=== PATIENT | male | born 1965 | race Caucasian/White ===

== ENCOUNTER 2025-10-24 08:44 | Outpatient (CLI) | payer BC, SELFPAY | END 2025-10-24 08:45 | disposition home or self-care (01) | LOC: NFLDREF 10-30 03:46 | PROVIDERS: PCP Family Medicine; Referring Provider Family Medicine; Visit Provider Family Medicine | DX: E78.5 Hyperlipidemia, unspecified (principal); Z80.42 Family history of malignant neoplasm of prostate | CPT/HCPCS: 80053; 80061; G0103 ==